=== PATIENT | male | born 1960 | race Caucasian/White ===

== ENCOUNTER 2021-11-27 10:43 | Outpatient (CLI) | payer BC ==
[2021-11-27 11:30] LABS: Hemoglobin 15.5 g/dL (13.5-17.5); Mean Corpuscular HGB CONC 32.5 g/dL (32.0-36.0); Mean Corpuscular Hemoglobin 35.5 pg (27.0-33.0); Mean Corpuscular Volume 109.2 fl (81.2-95.1); Mean Platelet Volume 10.9 fl (7.4-10.4); Platelet Count 209 10x3/uL (150-450); RBC Distribution Width 14.2 % (11.5-14.5); Red Blood Cell (RBC) Count 4.37 10x6/uL (4.32-5.72)
[2021-11-27 11:41] LABS: INR-International Normal Ratio 1.1; Prothrombin Time 11.9 sec (9.5-12.1)
[2021-11-27 11:47] LABS: Anion Gap 15 mmol/L (10-20); BUN (Urea Nitrogen) 27 mg/dL (8.4-25.7); Calc. Creatinine Clearance 0 mL/min (70-130); Calcium 9.9 mg/dL (7.8-10.44); Carbon Dioxide 28 mmol/L (23-31); Chloride 104 mmol/L (98-107); Glucose 91 mg/dL (80-115); Potassium 4.3 mmol/L (3.5-5.1); Sodium 143 mmol/L (136-145)
[2021-11-27 21:58] LABS: SARS-CoV-2 PCR by NAA Not Detected (NotDetected)
== END 2021-11-27 10:44 | disposition home or self-care (01) ==
LOC: LABBT 10:43
PROVIDERS: ATTEND Internal Medicine Cardiovascular Disease
DX: Z01.812 Encounter for preprocedural laboratory examination (principal); I48.19 Other persistent atrial fibrillation; Z20.822 Contact with and (suspected) exposure to COVID-19
CPT/HCPCS: 80048; 85027; 85610; U0003; U0005

== ENCOUNTER 2021-12-01 06:00 | Day surgery (SDC) | payer BC ==
[2021-11-23 14:52] VITALS: BMI 32.5
[2021-12-01] MEDS ORDERED: Protamine Sulfate 50 MG/5 ML VIAL ONE (06:39)
[2021-12-01] MEDS ORDERED: Heparin 25,000 units/D5W 500 ML ONE (06:39)
[2021-12-01] MEDS ORDERED: Heparin 10,000 UNITS/ 10 ML VIAL ONE ×3 (06:39→10:46)
[2021-12-01] MEDS ORDERED: Fentanyl 100 MCG/2 ML VIAL ONE (07:52)
[2021-12-01] MEDS ORDERED: ceFAZolin 2 GM/DEX 5% 100 ML BAG ONE (08:19)
[2021-12-01] MEDS ORDERED: Lidocaine 2% PF 100 mg/5 ml Syringe ONE (08:57)
[2021-12-01] MEDS ORDERED: Albuterol Sulfate HFA (OR ONLY) ONE (10:46)
== END 2021-12-01 18:50 | disposition home or self-care (01) ==
LOC: CCL 06:00
PROVIDERS: ATTEND Internal Medicine Cardiovascular Disease
PROC: 4A0234Z Measurement of Cardiac Electrical Activity, Percutaneous Approach (ICD-10-PCS; principal; 2021-12-01)
PROC: 4A023FZ Measurement of Cardiac Rhythm, Percutaneous Approach (ICD-10-PCS; principal; 2021-12-01)
PROC: 02K83ZZ Map Conduction Mechanism, Percutaneous Approach (ICD-10-PCS; principal; 2021-12-01)
PROC: 02583ZZ Destruction of Conduction Mechanism, Percutaneous Approach (ICD-10-PCS; principal; 2021-12-01)
DX: I48.19 Other persistent atrial fibrillation (principal); I48.4 Atypical atrial flutter; I47.1 Supraventricular tachycardia; I47.2 Ventricular tachycardia; I42.1 Obstructive hypertrophic cardiomyopathy; G47.33 Obstructive sleep apnea (adult) (pediatric); F17.210 Nicotine dependence, cigarettes, uncomplicated; Z79.01 Long term (current) use of anticoagulants; Z95.810 Presence of automatic (implantable) cardiac defibrillator
CPT/HCPCS: 85347; 93005; 93312; 93613; 93655; 93656; 93657; 93662; C1732; C1759; C1776; C1894; C2630; J1644; J2001; J2720; J3010

== ENCOUNTER 2023-05-30 06:20 | Day surgery (SDC) | payer BC ==
[2023-05-29 11:22] VITALS: BMI 24.4
[2023-05-30] MEDS ORDERED: PROPOFOL 200 MG/20 ML VIAL ONE (07:49)
[2023-05-30] MEDS ORDERED: Lidocaine 1% PF 5 ML VIAL ONE (07:49)
== END 2023-05-30 09:35 | disposition home or self-care (01) ==
LOC: SDC 06:20
PROVIDERS: ATTEND Internal Medicine Cardiovascular Disease
PROC: 5A2204Z Restoration of Cardiac Rhythm, Single (ICD-10-PCS; principal; 2023-05-30)
DX: I48.4 Atypical atrial flutter (principal); I48.19 Other persistent atrial fibrillation; I47.1 Supraventricular tachycardia; T82.110A Breakdown (mechanical) of cardiac electrode, initial encounter; G47.33 Obstructive sleep apnea (adult) (pediatric); F17.210 Nicotine dependence, cigarettes, uncomplicated; I47.29 Other ventricular tachycardia; I42.1 Obstructive hypertrophic cardiomyopathy; I50.22 Chronic systolic (congestive) heart failure; Z79.899 Other long term (current) drug therapy; Z92.89 Personal history of other medical treatment; Z95.810 Presence of automatic (implantable) cardiac defibrillator; Z98.890 Other specified postprocedural states
CPT/HCPCS: 92960; 93005; 93010; J2704

== ENCOUNTER 2024-10-11 12:51 | Inpatient (IN) | payer BC ==
[2024-10-11 14:26] LABS: #Basophils 0.05 10x3/uL (0.0-0.2); %Basophils 0.5 % (0.0-1.0); %Eosinophils 0.3 % (0.0-10.0); %Lymphocytes 23.8 % (21.0-51.0); %Monocytes 11.3 % (0.0-10.0); %Neutrophils 63.5 % (42.0-75.0); Hematocrit 47.8 % (42.0-52.0); Hemoglobin 15.5 g/dL (14.0-18.0); Mean Corpuscular HGB CONC 32.4 g/dL (32.0-36.0); Mean Corpuscular Hemoglobin 34.6 pg (27.0-31.0); Mean Corpuscular Volume 106.7 fL (78.0-98.0); Mean Platelet Volume 11.7 fL (7.4-10.4); Platelet Count 193 10x3/uL (130-400); RBC Distribution Width 15.4 % (11.5-14.5); Red Blood Cell (RBC) Count 4.48 mill/uL (4.70-6.10)
[2024-10-11 14:34] LABS: Troponin I 0.144 ng/mL (< 0.028)
[2024-10-11 14:37] LABS: ALT (SGPT) 24 U/L (8-55); AST (SGOT) 34 U/L (5-34); Albumin 3.9 g/dL (3.4-4.8); Alkaline Phosphatase 131 U/L (40-110); Anion Gap 20 mmol/L (10-20); BUN (Urea Nitrogen) 60 mg/dL (8.4-25.7); Bilirubin, Total 1.2 mg/dL (0.2-1.2); Calc. Creatinine Clearance 0 mL/min (70-130); Calcium 10.4 mg/dL (7.8-10.44); Carbon Dioxide 17 mmol/L (23-31); Chloride 98 mmol/L (98-107); Estimated GFR 23; Globulin 4.4 g/dL (2.4-3.5); Glucose 95 mg/dL (80-115); Lipase 33 U/L (8-78); Potassium 5.4 mmol/L (3.5-5.1); Protein, Total 8.3 g/dL (5.8-8.1); Sodium 130 mmol/L (136-145)
[2024-10-11] MEDS ORDERED: Metoprolol Tartrate 5 MG (5 mL) VIAL ONE (15:26)
[2024-10-11] MEDS ORDERED: Aspirin Chewable 81 MG TAB ONE (19:33)
[2024-10-11 20:39] LABS: Troponin I 0.144 ng/mL (< 0.028)
[2024-10-11 21:40] VITALS: BMI 26.6
[2024-10-11 22:05] LABS: #Basophils 0.05 10x3/uL (0.0-0.2); #Eosinophils Less than 0.03 10x3/uL (0.0-0.7); %Basophils 0.5 % (0.0-1.0); %Eosinophils 0.1 % (0.0-10.0); %Lymphocytes 22.2 % (21.0-51.0); %Monocytes 10.4 % (0.0-10.0); %Neutrophils 66.1 % (42.0-75.0); Hematocrit 48.2 % (42.0-52.0); Hemoglobin 16.4 g/dL (14.0-18.0); Mean Corpuscular Hemoglobin 35.3 pg (27.0-31.0); Mean Corpuscular Volume 103.7 fL (78.0-98.0); Mean Platelet Volume 11.8 fL (7.4-10.4); Platelet Count 204 10x3/uL (130-400); RBC Distribution Width 15.3 % (11.5-14.5); Red Blood Cell (RBC) Count 4.65 mill/uL (4.70-6.10)
[2024-10-11 22:13] LABS: Anion Gap 18 mmol/L (10-20); BUN (Urea Nitrogen) 70 mg/dL (8.4-25.7); Calc. Creatinine Clearance 26 mL/min (70-130); Calcium 9.7 mg/dL (7.8-10.44); Carbon Dioxide 21 mmol/L (23-31); Chloride 96 mmol/L (98-107); Estimated GFR 18; Glucose 105 mg/dL (80-115); Potassium 5.8 mmol/L (3.5-5.1); Sodium 129 mmol/L (136-145)
[2024-10-11 22:19] LABS: Troponin I 0.169 ng/mL (< 0.028)
[2024-10-12 00:05] LABS: Troponin I 0.184 ng/mL (< 0.028)
[2024-10-12 01:27] LABS: Troponin I 0.163 ng/mL (< 0.028)
[2024-10-12 04:10] LABS: Cardiac Risk 3.9 (Less than 4.5)
[2024-10-12] MEDS: Enoxaparin 40 MG (0.4 mL) SYRINGE SC SCH (09:23)
[2024-10-12] MEDS: Aspirin Chewable 81 MG TAB PO SCH (09:23)
[2024-10-12] MEDS: Furosemide 40 MG (4 mL) VIAL SLOW IVP SCH (11:09)
[2024-10-12] MEDS: Sodium Bicarbonate 75 MEQ in Sodium Chloride 0.45% 1,000 ML IV SCH (11:09)
[2024-10-12] MEDS: LOKELMA 10 GM PACKET PO SCH (11:09)
[2024-10-12 14:24] LABS: Anion Gap 17 mmol/L (10-20); BUN (Urea Nitrogen) 73 mg/dL (8.4-25.7); Calc. Creatinine Clearance 27 mL/min (70-130); Calcium 9.4 mg/dL (7.8-10.44); Carbon Dioxide 24 mmol/L (23-31); Chloride 94 mmol/L (98-107); Estimated GFR 19; Glucose 80 mg/dL (80-115); Sodium 131 mmol/L (136-145)
[2024-10-12] MEDS: Amiodarone 200 MG TAB PO SCH (20:52)
[2024-10-13 03:24] VITALS: TEMP 97.6
[2024-10-13 04:45] LABS: #Basophils 0.05 10x3/uL (0.0-0.2); %Basophils 0.6 % (0.0-1.0); %Eosinophils 1.7 % (0.0-10.0); %Lymphocytes 31.8 % (21.0-51.0); %Monocytes 13.2 % (0.0-10.0); %Neutrophils 52.1 % (42.0-75.0); Hematocrit 39.9 % (42.0-52.0); Hemoglobin 13.6 g/dL (14.0-18.0); Mean Corpuscular HGB CONC 34.1 g/dL (32.0-36.0); Mean Corpuscular Hemoglobin 35.1 pg (27.0-31.0); Mean Corpuscular Volume 102.8 fL (78.0-98.0); Mean Platelet Volume 12.1 fL (7.4-10.4); Platelet Count 168 10x3/uL (130-400); RBC Distribution Width 15.2 % (11.5-14.5); Red Blood Cell (RBC) Count 3.88 mill/uL (4.70-6.10)
[2024-10-13 05:00] LABS: Anion Gap 17 mmol/L (10-20); BUN (Urea Nitrogen) 71 mg/dL (8.4-25.7); Calc. Creatinine Clearance 33 mL/min (70-130); Carbon Dioxide 28 mmol/L (23-31); Chloride 96 mmol/L (98-107); Estimated GFR 24; Glucose 75 mg/dL (80-115); Sodium 138 mmol/L (136-145)
[2024-10-13] MEDS ORDERED: Amiodarone 200 MG TAB PO SCH (09:00)
[2024-10-13 10:24] VITALS: BP 109/64
[2024-10-13] MEDS: Potassium Chloride 20 MEQ TAB PO SCH (10:25)
[2024-10-13] MEDS: Torsemide 20 MG TAB PO SCH (10:26)
[2024-10-13] MEDS: Enoxaparin 30 MG (0.3 mL) SYRINGE SC SCH (10:26)
== END 2024-10-13 11:38 | disposition home or self-care (01) | DRG 683 ==
LOC: ERS 12:51 → 2SE 19:56 → OBSVTOIN 10-12 09:31
PROVIDERS: ADMIT Hospitalist; ATTEND Internal Medicine
DX: N17.9 Acute kidney failure, unspecified (principal); E87.20 Acidosis, unspecified; I50.22 Chronic systolic (congestive) heart failure; I13.0 Hypertensive heart and chronic kidney disease with heart failure and stage 1 through stage 4 chronic kidney disease, or unspecified chronic kidney disease; I42.9 Cardiomyopathy, unspecified; E87.5 Hyperkalemia; I48.91 Unspecified atrial fibrillation; N18.9 Chronic kidney disease, unspecified; Z95.0 Presence of cardiac pacemaker; I95.9 Hypotension, unspecified; Z79.82 Long term (current) use of aspirin; Z79.01 Long term (current) use of anticoagulants; Z79.899 Other long term (current) drug therapy; E87.6 Hypokalemia
CPT/HCPCS: 36415; 71045; 80048; 80053; 80061; 83690; 83735; 84443; 84484; 85025; 93005; 93306; G0378; J1940